=== PATIENT | male | born 1990 | race Caucasian/White ===

== ENCOUNTER 2021-10-03 09:37 | Emergency (ER) | payer OTHER, SELFPAY ==
--- NOTE | ~2021-10-03 | XR_ITS ---
XR wrist LT min 3V 10/03/2021 10:09 INDICATION: Left wrist pain PROCEDURE: 4 views left wrist COMPARISON: No prior studies for comparison. FINDINGS: Fracture, dislocation or subluxation is not identified. The soft tissues appear within norm al limits. No foreign bodies are identified. IMPRESSION: 1: NO ACUTE BONE OR JOINT ABNORMALITY IDENTIFIED. Reviewed, dictated and finalized at location A.
--- NOTE | 2021-10-03 09:46 | ED.UPPEXIN ---
HPI - Extremity Injury (Upper) General Chief Complaint: Extremity Injury, Upper Stated Complaint: left thumb injury Time Seen by Provider: 10/03/21 09:47 Source: patient, family and RN notes reviewed History of Present Illness HPI narrative: Patient is a 31-year-old male who presents the urgent care with his mother with complaints of left thumb/wrist pain. Patient states that he is unsure how he hurt it. 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 Patient has not done anything [id number] for his pain. No other acute complaints or injuries noted. Mother and patient aware of the plan of care. Some parts of this dictation were generated by voice recognition software and may contain typographical and/or grammatical inaccuracies. Related Data Home Medications Medication Instructions Recorded Confirmed escitalopram oxalate 10 mg tablet 10 mg PO DAILY 10/03/21 10/03/21 Allergies Allergy/AdvReac Type Severity Reaction Status Date / Time No Known Allergies Allergy Verified 10/03/21 09:58 Review of Systems Review of Systems: CONSTITUTIONAL: Denies fever, chills, or sweats. EYES: Denies visual changes, redness, or discharge. ENT: Denies rhinorrhea, congestion, sore throat, or otalgia. CARDIOVASCULAR: Denies chest pain, palpitations, or edema. RESPIRATORY: Denies cough or dyspnea. GASTROINTESTINAL: Denies abdominal pain, nausea, vomiting, or diarrhea. GENITOURINARY: Denies dysuria or hematuria. SKIN: Denies rash or itching. MUSCULOSKELETAL: Reports of left thumb/wrist pain NEUROLOGIC: Denies headache, numbness, or weakness. All other systems reviewed are negative, except as documented in HPI. PMFSH Comments At the time of my signature, I reviewed and agree with the nursing past medical, surgical, social, and family history. There is no relevant family history pertinent to the patient complaint. Exam Narrative: GENERAL: This is a well-nourished, well-developed patient, in no apparent distress. HEAD: normocephalic, atraumatic. EYES: PERRL. Sclera clear/white. Vision is grossly intact. EARS: External ears normal NOSE: External nose normal with no obvious nasal discharge, nares without redness, no rhinorrhea. THROAT: Mucous membranes moist NECK: Neck supple CARDIOVASCULAR: Regular rate and rhythm without murmurs, gallops, or rubs. RESPIRATORY: Clear to auscultation. Breath sounds equal bilaterally. No wheezes, rales, or rhonchi. SKIN: warm, intact with no suspicious lesions or rash, good texture and turgor. NEURO: awake, alert, and oriented to person, place and time. There were no obvious focal neurologic abnormalities. EXTREMITIES: No obvious deformity or fracture noted to the left upper extremity/thumb/wrist. Mild to moderate tenderness over the left thenar eminence and to the left distal radius. Positive strong left radial pulse with capillary refill less than 2 seconds. Range of motion to left upper extremity within normal limits with mild exacerbated pain on flexion Course Course Level of Care: Express Care Visit Vital Signs Vital signs: Vital Signs Temperature 98.6 F 10/03/21 09:48 Pulse Rate 60 10/03/21 09:48 Respiratory Rate 16 10/03/21 09:48 Blood Pressure 104/57 L 10/03/21 09:48 Pulse Oximetry 100 10/03/21 09:48 Oxygen Delivery Room Air 10/03/21 09:48 Temperature 98.6 F 10/03/21 09:48 Pulse Rate 60 10/03/21 09:48 Respiratory Rate 16 10/03/21 09:48 Blood Pressure 104/57 L 10/03/21 09:48 Pulse Oximetry 100 10/03/21 09:48 Oxygen Delivery Room Air 10/03/21 09:48 Reviewed MDM - Extremity Injury (Upper) MDM Narrative Medical decision making narrative: Reviewed x-ray results with patient mother. Aware that x-ray was negative for fracture or deformity. Advised the patient to wear an Noé wrap or a cock up splint for support effort. Use Tylenol/ibuprofen/ice as needed. Follow-up with your PCP within 2 to 5 days
[2021-10-03 09:48] VITALS: BP 104/57; PULSE 60; RESP 16; TEMP 37; O2SAT 100
== END 2021-10-03 10:36 | disposition home or self-care (01) ==
PROVIDERS: Emergency Provider Nurse Practitioner Family; PCP Internal Medicine
DX: M79.645 Pain in left finger(s) (principal); F41.9 Anxiety disorder, unspecified; F32.A Depression, unspecified
CPT/HCPCS: 73110; 99213; G0463

== ENCOUNTER 2024-06-17 14:18 | Emergency (ER) | payer OTHER, SELFPAY ==
--- NOTE | ~2024-06-17 | XR_ITS ---
EXAMINATION: XR foot RT min 3V DATE: 06/17/2024 14:45 INDICATION: Right foot injury and pain. TECHNIQUE: 4 views of right foot were obtained. COMPARISON: None. FINDINGS: There is flexion of the interphalangeal joints. There is valgus angulation at first interph alangeal joint. No fracture. There is mild osteoarthritis of first metatarsophalangeal joint. There i s internal fixation of tibia. IMPRESSION: 1. Mild osteoarthritis of first metatarsophalangeal joint. Reviewed, dictated and finalized at location A. [employer]
--- OUTSIDE RECORDS SUMMARY | 2024-06-17 14:21 | XMS_ITS | Clinical Summary ---
Author Organization [facility] Address [address] [place] [address] Phone Care Team Providers Care Dispatcher Automobile Rental Name Role Phone Lorena Rueda MD Primary Care Provider Allergies No known active allergies Medications naproxen (NAPROSYN) 500 MG Tablet Take 1 Tablet by mouth 2 times daily as needed for Moderate or more severe pain. 20 Tablet 2 Active HYDROcodone-ac etaminophen (NORCO) 5-325 MG TabletIndicati ons:Nondisplac ed fracture of greater trochanter of right femur, initial encounter for closed fracture (HCC) Take 1-2 Tablets by mouth every 4 hours as needed for Moderate or more severe pain for up to 13 doses. 23 Tablet 2 Active traMADol (ULTRAM) 50 MG TabletIndicati ons:Displaced fracture of greater trochanter of right femur, subsequent encounter for closed fracture with delayed healing Take 1 Tablet by mouth every 8 hours as needed for Moderate or more severe pain. 12 Tablet 2 Active rabies vaccine, PCEC (RABAVERT) Recon Suspension 1 mL by Intramuscular route See Admin Instructions. Give on day 3 (11/01/2023), day 7 (11/05/2023) and day 14 (11/12/2023). 1 mL 2 Active Active Problems Problem Noted Date Diagnosed Date Animal bite 11/12/2023 Immunizations Immunization Administration Dates Next Due RABIES - IM Fibroblast Cultu re Vaccine 11/12/2023,11/05/2023,11/01/2023,2023 RABIES IG IM/SQ 10/29/2023 TDAP Vaccine 10/29/2023 Social History Tobacco Use Types Packs/Day Years Used Date Smoking Tobacco: Never Smokeless Tobacco: Never Tobacco Cessation:Counseling Given: Not Answered Alcohol Use Standard Drinks/Week Comments Never 0 (1 standard drink = 0.6 oz pur e alcohol) Sex and Gender Information Value Date Recorded Sex Assigned at Not on file Legal Sex Male 7:43 PM CDT Gender Identity Not on file Sexual Orientation Not on file Last Filed Vital Signs Vital Sign Reading Time Taken Comments Blood Pressure 105/69 11/12/2023 3:13 PM CDT Pulse 100 11/12/2023 3:13 PM CDT Temperature 36.4 C (97.5 F) 11/12/2023 3:13 PM CDT Respiratory Rate 18 11/12/2023 3:13 PM CDT Oxygen Saturation 97% 11/12/2023 3:13 PM CDT Inhaled Oxygen Concentration - - Weight 68 kg (150 lb) 10/29/2023 1:02 PM CDT Height 182.9 cm (6') 10/29/2023 1:02 PM CDT Body Mass Index 20.34 10/29/2023 1:02 PM CDT Plan of Treatment Health Maintenance Due Date Last Done Comments Hepatitis C Virus (HCV) Screening 1991 Hepatitis B Immunization (3 of 3 - 3-dose series) 03/21/1997 01/03/1997, 11/29/1996 Influenza Immunization (#1) 2024 1107/2022, 02/28/2022, 04/11/2019, Additional history exists SARS-COV-2 Immunization ( season) 2024 05/17/2021, 04/03/2021 Td Immunization Every 10 Years (Adults With 1 Tdap) 10/28/2033 10/29/2023, 03/15/2018 Respiratory Syncytial Virus (RSV) Immunization (Adult) (1 - 1-dose 75+ series) 08/25/2066 DTaP/Tdap/Td Immunization Discontinued 2023, 03/15/2018, 11/29/1996, Additional history exists TdaP Immunization Discontinued 10/29/2023, 03/15/2018 Meningococcal Immunization (ACWY) Aged Out No longer eligible based on patient's age to complete this topic Pneumococcal Immunization Combined Aged Out No longer eligible based on patient's age to complete this topic Rotavirus Immunization Aged Out No lo nger eligible based on patient's age to complete this topic Insurance MEDICAID [employer] Care Teams Dispatcher Automobile Rental Relationship Specialty Start Date End Date Lorena Rueda MD [address] [place] [address] PCP - General Internal Medicine 03/13/21
--- OUTSIDE RECORDS SUMMARY | 2024-06-17 14:21 | XMS_ITS | Continuity of Care Document ---
Author Organization [facility] Address [address] [place] [address] Phone Care Team Providers Care Supervisor Doping Name Role Phone Marty Obregon MD Unavailable Unavailable Procedures Procedure Date X-ray exam of elbow, complete 8 Office/outpatient visit,[facility], mod 2007 X-ray exam of elbow, complete 8 X-ray exam of foot, complete Office/outpatient visit,[facility], mod 2007 Advance Directives Directive Yes / No Effective Date File Name No Information Encounters Encounter Description Practice Location Reason(s) For Visit Diagnoses Date Provider Providers Copied on Encounter [facility], [address] [place] [address], [id number], tel:[phone] [facility] No Information Dec-0 8-200 8 Sabas Ferguson. [address] [place], [place], [id number], . tel:[phone] [facility], [address] [place] [address], [id number], tel:[phone] [facility] No Information 3 0-200 8 Sabas Ferguson. [address] [place], [place], [id number], . tel:[phone] Office/outpat ient visit,est, mod [facility], [address] [place] [address], [id number], tel:[phone] [facility] No Information Oct-2 3-200 8 Sabas Ferguson. [address] [place], [place], [id number], . tel:[phone] [facility], [address] [place] [address], [id number], tel:[phone] [facility] [facility] Office No Information 8 Martínadam Alex. [address] [place], [address], . tel:[phone] Office/outpat ient visit,[facility], [facility], [address] [place] [address], [id number], tel:[phone] [facility] Office No Information 8 Jose Johnson. [address] [place], [address], . tel:[phone] Family History Family Member Type Diagnosis Age At Onset No Information Payers Payer name Insurance type Covered republican ID Authorlynna irvin(s) [facility] [id number] Social History Type Description Quantity Date Captured Comments Sex Male Smoking Status No Information Chief Complaint And Reason For Visit No Information Reason For Referral Reason For Referral No Information History Of Present Illness Encounter Date Complaint History Of Prese nt Illness No Information Functional Status Date Functional Assessmen t No Information Instructions Date Instruction Additional Infor mation No Information Assessments Type Assessment Date No Information Patient Care Teams Name Effective Dates (start - stop) Status Members No Information
--- OUTSIDE RECORDS SUMMARY | 2024-06-17 14:21 | XMS_ITS | Encounter Summary ---
Author Organization [facility] Address [address] [place] [address] Phone Care Team Providers Care Mixing And Dispensing Supervisor Name Role Phone Lorena Rueda MD Primary Care Provider [phone] Encounter Details Date Type Department Care Team (Late st Contact Info) Description 11/02/2023 [facility] [address] [place] [address] Adelita Cedillo MD [address] [place] [address] Social History Tobacco Use Types Packs/Day Years Used Date Smoking Tobacco: Never Smokeless Tobacco: Never Alcohol Use Standard Drinks/Week Comments Never 0 (1 standard drink = 0.6 oz pur e alcohol) Sex and Gender Information Value Date Recorded Sex Assigned at Not on file Legal Sex Male 7:43 PM CDT Gender Identity Not on file Sexual Orientation Not on file documented as of this encounter Plan of Treatment Not on file documented as of this encounter Visit Diagnoses Not on filedocumented in this encounter Care Teams Mixing And Dispensing Supervisor Relationship Specialty Start Date End Date Lorena Rueda MD [address] [place], [place] [id number] PCP - General Internal Medicine 03/13/21 documented as of this encounter
--- OUTSIDE RECORDS SUMMARY | 2024-06-17 14:22 | XMS_ITS | Continuity of Care Document ---
Author Organization [facility] Address [address] [place] [address] Phone Care Team Providers Care Slunk Skinner Name Role Phone Marty Obregon MD Unavailable Unavailable Procedures Procedure Date X-ray exam of elbow, complete 8 Office/outpatient visit,[facility], mod 2007 X-ray exam of elbow, complete 8 X-ray exam of foot, complete Office/outpatient visit,[facility], mod 2007 Advance Directives Directive Yes / No Effective Date File Name No Information Encounters Encounter Description Practice Location Reason(s) For Visit Diagnoses Date Provider Providers Copied on Encounter [facility], [address] [place] [address], [id number], tel:[phone] [facility] No Information Dec-0 8-200 8 Sabas Ferguson. [address] [place], [place], [id number], . tel:[phone] [facility], [address] [place] [address], [id number], tel:[phone] [facility] No Information 3 0-200 8 Sabas Ferguson. [address] [place], [place], [id number], . tel:[phone] Office/outpat ient visit,est, mod [facility], [address] [place] [address], [id number], tel:[phone] [facility] No Information Oct-2 3-200 8 Sabas Ferguson. [address] [place], [place], [id number], . tel:[phone] [facility], [address] [place] [address], [id number], tel:[phone] [facility] Office No Information 8 Martínadam Alex. [address] [place], [address], . tel:[phone] Office/outpat ient visit,[facility], [facility], [address] [place] [address], [id number], tel:[phone] [facility] No Information 8 Jose Johnson. [address] [place], [address], . tel:[phone] Family History Family Member Type Diagnosis Age At Onset No Information Payers Payer name Insurance type Covered green party ID Authorlynna irvin(s) [facility] [id number] Social History Type Description Quantity Date Captured [...]
--- OUTSIDE RECORDS SUMMARY | 2024-06-17 14:22 | XMS_ITS | Clinical Summary ---
Author Organization [facility] Address [address] [place] [address] Care Team Providers Care Supervisor Research Kennel Name Role Phone Lorena Rueda MD Primary Care Provider [phone] Source Comments [facility],non-owned Affiliates and Associated Physician Practices is amultiple site organization consisting of ambulatory clinics and hospital sitesin [place], [place], [place] and [place]. This disclosure is being madepursuant to the Care Everywhere program and may not contain all information available regarding this patient. Last updated 18.[facility] Social History Tobacco Use Types Packs/Day Years Used Date Smoking Tobacco: Never Assessed Sex and Gender Information Value Date Recorded Sex Assigned at Not on file Gender Identity Not on file Sexual Orientation Not on file Plan of Treatment Health Maintenance Due Date Last Done Comments HIV SCREENING 08/25/2006 HEPATITIS C SCREENING 08/21/2009 DTAP/TDAP/TD VACCINES (1 - Tdap) 08/25/2010 HEPATITIS B VACCINE (1 of 3 - 19+ 3-dose series) 08/25/2010 COVID-19 VACCINE ( - 2023-2 5 season) 2024 INFLUENZA VACCINE (#1) 2024 DEPRESSION SCREENING 05/04/2024 ZOSTER VACCINE (1 of 2) 08/25/2041 HIB VACCINE Aged Out No longer eligi ble based on patient's age to complete this topic HPV VACCINE Aged Out No longer eligi ble based on patient's age to complete this topic MENINGOCOCCAL (Group B) VACCINE Aged Out No longer eligible based on patient's age to complete this topic MENINGOCOCCAL VACCINE Aged Out No alyssa sumit eligible based on patient's age to complete this topic PNEUMOCOCCAL VACCINE Aged Out No long er eligible based on patient's age to complete this topic Care Teams Supervisor Research Kennel Relationship Specialty Start Date End Date Lorena Rueda MD [address] [place] [address] PCP - General 04/01/21
--- OUTSIDE RECORDS SUMMARY | 2024-06-17 14:22 | XMS_ITS | Continuity of Care Document ---
Author Organization [facility] Address [address] [place] [address] Phone Care Team Providers Care Heating Element Repairer Name Role Phone Theo Tarango MD Unavailable Unavailable Advance Directives Directive Yes / No Effective Date File Name No Information Encounters Encounter Description Practice Location Reason(s) For Visit Diagnoses Date Provider Providers Copied on Encounter [facility], [address], [place], [place], [id number], tel:[phone] Aranza Collins ATTN DEFIC NONHYPERACT Emelina Venegas. [address], [address], [place], [place], [id number]. tel:[phone] Family History Family Member Type Diagnosis Age At Onset No Information Payers Payer name Insurance type Covered alliance party ID Authoriza tion(s) No Information Social History Type Description Quantity Date Captured [...]
--- OUTSIDE RECORDS SUMMARY | 2024-06-17 14:22 | XMS_ITS | Referral Summary ---
Author Organization [facility] Address [address] [place] [address] Care Team Providers Care Parts Counter Representative Name Role Phone Lorena Rueda MD Primary Care Provider [phone] Source Comments [facility],non-owned Affiliates and Associated Physician Practices is amultiple site organization consisting of ambulatory clinics and hospital sitesin [place], [place], [place] and [place]. This disclosure is being madepursuant to the Care Everywhere program and may not contain all information available regarding this patient. Last updated 18.[facility] Social History Tobacco Use Types Packs/Day Years Used Date Smoking Tobacco: Never Assessed Sex and Gender Information Value Date Recorded Sex Assigned at Not on file Gender Identity Not on file Sexual Orientation Not on file Plan of Treatment Not on file Care Teams Parts Counter Representative Relationship Specialty Start Date End Date Lorena Rueda MD [address] [place] [address] PCP - General 04/01/21
--- OUTSIDE RECORDS SUMMARY | 2024-06-17 14:22 | XMS_ITS | Data Portability ---
Author Organization [facility] Address [address] [place] [address] Care Team Providers Care Magazine Filler Name Role Phone LORENA REAL Primary Care Provider Assessment No assessment recorded. Plan of Treatment Reminders Order Date Submit Date Provider Last Modified By Organization Details Last Modified Time Details Appointments None recorded . Lab CMP, serum or plasma 2022 023 [facility], [address] [facility], [place], [address], 4 10:25:33 lipid panel, serum 2022 023 [facility], [address] [facility], [facility], [place], [address], 3 11:27:44 CBC w/ auto diff 2022 023 MINAL [facility], [address] [place] [address], [facility] 2, [place], [address], 3 11:27:44 HbA1c (hemoglo bin A1c), blood 2022 023 MINAL [facility], [address] [facility], [facility] 2, [place], [address], 3 11:27:43 TSH, ultra-se nsitive, serum 2022 023 MINAL [facility], [address] [facility], [facility] 2, [place], [address], 11:27:43 Referral general surgeon referral 2022 023 [email or web address] Jerome Irvin MD, 4 [facility] , [address], [place], [address], 08:28:55 orthoped ic surgeon referral - Please call pt to schedule - Thank you 2021 [email or web address] Braeden Rivers, 4 [facility] , [address], [place], [address], 2 15:10:36 Procedures None recorded . Surgeries None recorded . Imaging None recorded . Medication Orders duloxeti ne 30 mg capsule, delayed release 2021 [facility] [place], [address], 11:07:22 gabapent in 100 mg capsule 2021 [facility] [place], [address], 11:07:24 escitalo pram 20 mg tablet 2021 [facility] [address] [place], [address], 11:58:09 Patient TargetsNo targets recorded. Patient Instructions Encounter Date Encounter Id Patient Instructions Last Modified By Organization Details Last Modified Time 10/29/2021 [id number] f/u in 1 month nsuthan Not available 10/29/2021 14:47:56 02/28/2022 [id number] f/u in 1 month nsuthan Not available 02/28/2022 12:06:50 08/01/2022 [id number] f/u in 4month nsuthan Not available 0 08/01/2022 14:35:05 03/06/2023 [id number] flu shot /labs / f/u yr nsuthan Not available 03/06/2023 11:29:37 11/09/2023 [id number] jefferyn maxx Not available 11/08 12:35:38 Reason for Referral Orthopedic Surgeon Referral for Closed fracture of greater trochanter of right femur Please call pt to schedule- Thank you Referring Physician: Cathy Real, Internal Medicine, Encounter Date: 02/28/2022 General Surgeon Referral for Sebaceous cyst of skin Referring Physician: Cathy Real, Internal Medicine, Encounter Date: 08/01/2022 Results Created Date Observation Date Name Description Value Unit Range Abnormal Flag Note LastModifiedBy Organization Detail LastModifiedTime 10/04/19 22 10/03/2021 XR, wrist No observ ation record ed. maxx [facility] [address], [place], [address], 10/04/2021 10:18:41 02/29/20 22 02/20/2022 XR, femur , 2 or more view No observ ation record ed. [facility] [address] [place], [address], 03/04/2022 10:16:08 02/29/[address], pelvi s, w/o contr ast No observ ation record ed. Francisco Wheat MD [address], [place], [address], 03/03/2022 16:03:51 03/03/20 22 XR, hip, unila teral , 2 or 3 view No observ ation record ed. Francisco Wheat MD [address], [place], [address], 03/03/2022 16:03:51 Result Notes None recorded. Problems Name Problem SNOMED Code Status Onset Date Resolution Date Notes Provider Name and Address Organization Details Recorded Time Musculosk eletal pain 925541518 Active 2019 Lorena Real MD Attn: Lefty g,[address] [place], [address], [facility] - [facility] 0 09:02:51 Alcohol abuse 04550089 Active 2021 Lorena Real MD Attn: Lefty morrison,[address] [facility], [place], [address], [place] - [facility] 2 15:08:47 Closed fracture of greater trochante r of right femur 358189955239 55012 Active 2022 Lorena Real MD Attn: Lefty morrison,[address] [place], [address], [place] [facility] 3 11:57:24 Traumatic brain injury 603373257 Active Lorena Real MD Attn: Lefty morrison,[address] [place], [place], [address] [place] [address] 2, [place] - [facility] 2 12:16:27 Mixed anxiety and depressiv e disorder 283308061 Active Lorena Real MD Attn: Lefty morrison,[address] [place], [place], [address] [place] [address] 2, [place] - [facility] 2 12:16:27 Knee pain Active Lorena Real MD Attn: Emelycandice morrison,[address] [facility], [place], [address], [place] [facility] 5 16:33:54 Vitamin D deficienc y 00958774 Active Lorena Real MD Attn: Emelycandice morrison,[address] [place], [place], [address] [place] [address] 2, [place] - [facility] 5 16:33:54 Urinary incontine nce 814975609 Active Lorena Real MD Attn: Emelycandice morrison,[address] [place], [address], [place] - [facility] 2 12:16:27 Elevated blood-pre ssure reading without diagnosis of hypertens ion 266334870 Completed 201607/10/2016 Lorena Real MD Attn: Emelycandice morrison,[address] [place], [address], [place] [facility] 12:01:50 Problem Notes None recorded. Procedures Surgical History Date Name Laterality Status Provider Name and Address Organization Details Recorded Time Tracheostomy cleaning brush completed [facility] 03/15/2018 14:13:53 open insertion of feeding tube into stomach completed [facility] 03/15/2018 14:14:23 release of tendon completed [facility] 03/15/2018 14:14:41 free skin graft completed [facility] 03/15/2018 14:15:18 Imaging Results Imaging Date Name Status [facility]Modified by [facility] Details LastModified Time 10/03/2021 XR, wrist completed maxx [address], [place], [address], 10/04/2021 10:18:41 02/20/2022 XR, femur, 2 or more view completed [facility] [address] [place], [address], 03/04/2022 10:16:08 02/28/2022 CT, pelvis, w/o contrast completed Francisco Wheat MD [address] , [place], [address], 03/03/2022 16:03:51 03/03/2022 XR, hip, unilateral, 2 or 3 view completed Francisco Wheat MD [address] [place], [address], 03/03/2022 16:03:51 Procedure Notes None recorded. Medical Equipment None Reported. Allergies No known drug allergies Medications Name Sig Start Date Stop Date Status Note LastModified by Organization Details LastModified Time cyclobenzap rine 10 mg tablet TAKE 1 TABLET BY MOUTH THREE TIMES DAILY NEEDED FOR PAIN FOR 14 DAYS 03/06 completed Not Available Not Available Not Available amoxicillin 500 mg capsule 03/15 completed Not Available Not Available Not Available oxybutynin chloride ER 10 mg tablet,exte nded release 24 hr Take 1 tablet every day by oral route. 03/15 completed Not Available Not Available Not Available ibuprofen 800 mg tablet 03/15 completed Not Available Not Available Not Available fluconazole 150 mg tablet active Not Available Not Available Not Available hydrocodone 5 mg-acetamin ophen 325 mg tablet TAKE 1 TO 2 TABLETS BY MOUTH EVERY 4 HOURS NEEDED FOR MODERATE OR MORE SEVERE PAIN. MAX 8 PER DAY 03/06 completed Not Available Not Available Not Available tramadol 50 mg tablet TAKE ONE TABLET BY MOUTH ONCE DAILY NEEDED 07/10 completed Not Available Not Available Not Available triamcinolo ne acetonide 0.1 % topical cream APPLY A THIN LAYER TO THE AFFECTED AREA(S) BY TOPICAL ROUTE TWICE DAILY 03/06 completed Not Available Not Available Not Available baclofen 20 mg tablet Take 1 tablet twice a day by oral route for 30 days. 10/29 completed Not Available Not Available Not Available nicotine 21 mg/24 hr daily transdermal patch active Not Available Not Available Not Available oxybutynin chloride ER 5 mg tablet,exte nded release 24 hr Take 2 tablets by mouth daily 03/15 completed Not Available Not Available Not Available gabapentin 100 mg capsule TAKE 1 CAPSULE BY MOUTH ONCE DAILY AT BEDTIME 03/06 completed Not Available Not Available Not Available ergocalcife rol (vitamin D2) 1,250 mcg (50,000 unit) capsule 03/15 completed Not Available Not Available Not Available oxybutynin chloride 5 mg tablet TAKE TWO TABLETS BY MOUTH TWICE DAILY 07/10 completed Not Available Not Available Not Available sertraline 50 mg tablet Take 1 tablet every day by oral route. 03/15 completed Not Available Not Available Not Available naproxen 500 mg tablet TAKE 1 TABLET BY MOUTH TWICE DAILY NEEDED FOR MODERATE OR MORE SEVERE PAIN 03/06 completed Not Available Not Available Not Available amoxicillin 875 mg-potassiu m clavulanate 125 mg tablet 11/08 completed Not Available Not Available Not Available escitalopra m 10 mg tablet TAKE 1 TABLET BY MOUTH ONCE DAILY 10/29 completed Not Available Not Available Not Available escitalopra m 20 mg tablet Take 1 tablet every day by oral route. 08/01 completed Not Available Not Available Not Available divalproex ER 250 mg tablet,exte nded release 24 hr active Not Available Not Available Not Available duloxetine 30 mg capsule,del ayed release Take 1 capsule every day by oral route. 03/06 completed Not Available Not Available Not Available oxybutynin chloride take one 5mg tablet twice daily 07/10 completed Not Available Not Available Not Available ID NOW COVID-19 Test Kit TEST DIRECTED 09/06 completed Not Available Not Available Not Available Vitals Date Recorded Body height Body mass index (BMI) Body weight Heart rate Respiratory rate Body temperature Oxygen saturation Oxygen saturation in Arterial blood by Pulse oximetry Systolic blood pressure Diastolic blood pressure Provider Name and Address Organization Details Last Updated DateTime 2 182.88 cm 18.7 kg/m2 69825.0 3 g 93 /min 14 /min 97.3 [degF] 96 % 96 % 126 mm[Hg] 72 mm[Hg] Janeth Yu MA [facility] 2 14:37:16 Date Recorded Body height Body mass index (BMI) Body weight Heart rate Respiratory rate Body temperature Oxygen saturation Oxygen saturation in Arterial blood by Pulse oximetry Systolic blood pressure Diastolic blood pressure Provider Name and Address Organization Details Last Updated DateTime 2 182.88 cm 19.5 kg/m2 93757.9 4 g 103 /min 14 /min 97.5 [degF] 97 % 97 % 110 mm[Hg] 76 mm[Hg] Janeth Yu MA [place] - [facility] 2 11:44:57 Date Recorded Body height Respiratory rate Body temperature Oxygen saturation Oxygen saturation in Arterial blood by Pulse oximetry Heart rate Body mass index (BMI) Body weight Systolic blood pressure Diastolic blood pressure Provider Name and Address Organization Details Last Updated DateTime 3 182.88 cm 14 /min 97.2 [degF] 97 % 97 % 79 /min 20.2 kg/m2 43403.3 4 g 121 mm[Hg] 80 mm[Hg] Anushka Damon MA [place] - [facility] 3 11:52:22 Date Recorded Body height Body mass index (BMI) Body weight Heart rate Respiratory rate Body temperature Oxygen saturation Oxygen saturation in Arterial blood by Pulse oximetry Systolic blood pressure Diastolic blood pressure Provider Name and Address Organization Details Last Updated DateTime 3 182.88 cm 19.8 kg/m2 01633.4 9 g 106 /min 16 /min 98 [degF] 98 % 98 % 130 mm[Hg] 96 mm[Hg] LOBO Navarrete [place] - [facility] 3 11:09:32 Date Recorded Body height Body mass index (BMI) Body weight Oxygen saturation Oxygen saturation in Arterial blood by Pulse oximetry Body temperature Heart rate Systolic blood pressure Diastolic blood pressure Provider Name and Address Organization Details Last Updated DateTime 4 182.88 cm 18.8 kg/m2 27877.1 8 g 97 % 97 % 97.8 [degF] 64 /min 118 mm[Hg] 66 mm[Hg] Cyndi Valente [place] - [facility] 4 10:38:59 Social History Question Answer Notes LastModified by Organizat ion Details LastModified Time Tobacco Smoking Status Former Smoker Quit- 2014 Janeth Gigi mcallister, [place] - [facility] 07/10/2016 11:25:20 What Is Your Level Of Alcohol Consumption? Occasional Information not available 10/29/2021 Are You Blind Or Do You Have Difficulty Seeing? No Information not available 03/05/2021 What Is Your Level Of Caffeine Consumption? Heavy Mountain Dew Sometimes & Tea Information not available 11/09/2023 How Much Tobacco Do You Chew? None Information not available 07/10/2016 In The 14 Days Before Symptom Onset, Have You Had Close Contact With A Laboratory-confi rmed COVID-19 While That Case Was Ill? No Information not available 01/19/2020 In The 14 Days Before Symptom Onset, Have You Had Close Contact With A Person Who Is Under Investigation For COVID-19 While That Person Was Ill? No Information not available 01/19/2020 Have You Been To An Area Known To Be High Risk For COVID-19? No [facility] Information not available 02/28/2022 Are You Currently Employed? No Information not available 03/05/2021 Are You Deaf Or Do You Have Serious Difficulty Hearing? No Information not available 03/05/2021 What Type Of Diet Are You Following? REGULAR Information not available 07/10/2016 Which Illicit Or Recreational Drugs Have You Used? Denies Information not available 07/10/2016 Do You Or Have You Ever Used E-cigarettes Or Vape? Current User Of Electronic Cigarettes 3 % Nicotine Information not available 01/19/2020 What Is The Highest Grade Or Level Of School You Have Completed Or The Highest Degree You Have Received? [id number] Information not available 03/05/2021 What Is Your Occupation? Disability Information not available 03/15/2018 Are There Any Guns Present In Your Home? No Information not available 01/19/2020 Marital Status Single Informatio n not available 07/10/2016 What Was The Date Of Your Most Recent Tobacco Screening? 11/09/2023 Information not available 11/09/2023 What Is Your Relationship Status? Single Information not available 03/05/2021 Do You Use Your Seat Belt Or Car Seat Routinely? Yes Information not available 03/05/2021 Seat Belts Used Routinely Yes Information not available 01/19/2020 Smoke Alarm In Home Yes Information not available 01/19/2020 Do You Have Smoke And Carbon Monoxide Detectors In Your Home? Yes Information not available 03/05/2021 At What Age Did You Start Smoking Tobacco? 15 Information not available 07/10/2016 Do You Or Have You Ever Used Smokeless Tobacco? Never Used Smokeless Tobacco Information not available 01/19/2020 How Much Tobacco Do You Smoke? No Information not available 01/19/2020 General Stress Level Low Information not available 07/10/2016 Do You Feel Stressed (tense, Restless, Nervous, Or Anxious, Or Unable To Sleep At Night)? [id number] Information not available 03/06/2023 Do You Use Any Illicit Or Recreational Drugs? Yes Marijuana Information not available 10/29/2021 Do You Use Sunscreen Routinely? No Information not available 01/19/2020 Has Tobacco Cessation Counseling Been Provided? Yes Information not available 10/29/2021 On What Date Was Tobacco Cessation Counseling Provided? 11/09/2023 Information not available 11/09/2023 Do You Or Have You Ever Used Any Other Forms Of Tobacco Or Nicotine? Yes Information not available 03/05/2021 How Many Years Have You Used E-cigarettes Or Vape? 8 03/06/23 Information not available 03/06/2023 Sex: Male Functional Status Question Answer Note LastModified by Organizat ion Details LastModified Time Are you able to care for yourself? Yes w/ assistance Information not available 03/05/2021 What is your exercise level? None weight lifting Information not available 02/28/2022 Mental Status None recorded. Family History Relationship Description Onset Age of this Age Resolved Age Notes LastModified by Organization Details LastModified Time Mother Depressive disorder Not available 2016 11:24:59 Mother Hypertensive disorder Not available 2016 11:25:06 Mother Family history of breast cancer December 01, 2022 double mastec nakitatammi webbyma Not available 11/09/2023 10:34:34 Paternal Grandmother Malignant tumor of cervix Not available 09/06 12:10:19 Medical History Condition Response Coronary Artery Disease N Other Y High Blood Pressure N Atrial Fibrillation N Kidney or Bladder Problems N Thyroid Problems N GI Problems N Depression N COPD N Blood Clots N Skin Problems N Anemia N Heart Attack ([place]) N Anxiety Disorder N Diabetes N Muscle, Joint, or Bone Problems N Seizures/Epilepsy N Acid Reflux (GERD) N Cancer N Stroke N Asthma N Allergies N High Cholesterol N Hepatitis N Liver Disease N Headaches Y Heart Failure N Osteoporosis N Immunizations Vaccine Type Date Status Note Provider Nam e and Address Organization Details Recorded Time COVID-19, mRNA, LNP-S, PF, 30 mcg/0.3 mL dose 1 completed ARIES Burger, [place] - [facility] 10/29/2021 14:29:34 COVID-19, mRNA, LNP-S, PF, 30 mcg/0.3 mL dose 2 completed ARIES Burger, [place] - [facility] 10/29/2021 14:30:08 Influenza, split virus, quadrivalent, preservative 8 completed Not Available [facility] 05/21/2019 02:39:48 Tdap 8 completed Not Available [facility] 05/21/2019 02:36:56 Influenza, split virus, quadrivalent, PF 9 completed Not Available [facility] 05/21/2019 02:38:48 Influenza, split virus, quadrivalent, preservative 2 completed Lorena Real MD Attn: Accounting[address] [facility], [place], [address], [facility] 02/28/2022 15:23:45 Influenza, split virus, quadrivalent, preservative 3 completed Lorena Real MD Attn: Accounting[address] [facility], [place], [address], [facility] 03/06/2023 15:41:25 tetanus toxoid, unspecified formulation 7 completed Janeth [facility] 07/10/2016 11:24:20 Past Encounters Encounter ID Performer Location Encounter Start Date Encounter Closed Date Diagnosis/Indication Diagnosis SNOMED-CT Code Diagnosis ICD10 Code Diagnosis Note [id number] Malgorzata Hodges (Adult Med) [address] [place] [address] 08/16/2014 15:19:51 08/16/2014 16:27:21 Traumatic brain injury 687281354 with muscle spasm of legs Mixed anxi ety and depressive disorder 812252212 Trial of Zoloft f/u in 1 month Knee pain 93623465 of L/ knee check xray Vitamin D deficiency 98595833 Urinary incontinence 861655081 [id number] MD Tracie Cuadra (Adult Med) [address] [place] [address] 07/10/2016 11:03:53 07/10/2016 14:16:41 Urinary incontinence 646524897 R32 Adult heal th examination 719544702 Z00.01 healthy diet and exercise discussed with pt/ his mom [id number] MD Tracie Cuadra (Adult Med) [address] [place] [address] 03/15/2018 14:04:04 03/15/2018 16:25:12 Administration of influenza vaccine 56340289 Z23 Adult heal th examination 821897439 Z00.01 healthy diet and exercise discussed with pt/ his mom Administra tion of diphtheria, pertussis, and tetanus vaccine 774513339 Z23 Musculoskeletal pain 279 373567 M79.10 with muscle spasm of legs [id number] Janeth Yu MA [facility] (Adult Med) [address] [place] [address] 04/11/2019 10:31:03 04/12/2019 08:39:08 Administration of influenza vaccine 24266785 Z23 [id number] [facility] [address] [place] [address] 01/19/2020 08:17:55 01/26/2020 01:33:26 Urinary incontinence 702337795 R32 Uses pad Musculoskeletal pain 279 502804 M79.10 with muscle spasm of legs and traumatic brain injury [id number] [facility] [address] [place] [address] 03/05/2021 09:23:57 03/06/2021 05:57:54 Adult health examination 998724572 Z00.00 healthy diet and exercise discussed with pt/ his mom Urinary incontinence 165 429666 R32 Uses pad [id number] [facility] [address] [place] [address] 09/06/2021 11:51:46 09/09/2021 07:05:15 Mixed anxiety and depressive disorder 840553164 F41.8 with anger issues- failed on meds in the past- pt to see psychiatri st / go to ER if SI/HIpt to start escitalopr am with hydroxyzin e hs Atopic dermatitis 377511 01 L20.9 on R/dorsal foot - avoid scratch [id number] [facility] [address] [place] [address] 10/29/2021 14:05:49 10/30/2021 08:32:38 Mixed anxiety and depressive disorder 804022190 F41.8 with anger issues- failed on meds in the past- pt to see psychiatri st / go to ER if SI/HIpt to increase escitalopr am 20mg daily with hydroxyzin e hs Musculoskeletal pain 279 209297 M79.10 with muscle spasm of legs and traumatic brain injury- pt to take gabapentin hs Alcohol abuse 24163713 F 10.10 - pt still continues to drink alcohol -counselle d [id number] MD Tracie Cuadra (Adult Med) [address] [place] [address] 02/28/2022 11:24:40 03/04/2022 10:00:32 Musculoskeletal pain 719698806 M79.10 with muscle spasm of legs and traumatic brain injury- pt to take gabapentin hs Traumatic brain injury 528473087 S06.300S with muscle spasm of legs Difficulty walking 30070 2003 R26.2 with recent fx of R/femur and R/side weakness due to traumatic brain injury- pt is not safe with cane or walker - he is at risk for fall with cane or walkerpt needs to have electric wheel chair to complete ADL Administra tion of influenza vaccine 34972705 Z23 Closed fra cture of greater trochanter of right femur 0600379817 4596608 S72.111D - pt to see ortho / CT showed minimally displaced trochanter ic fxconsider PT after ortho Mixed anxi ety and depressive disorder 359026159 F41.8 with anger issues- failed on meds in the past- pt to see psychiatri st / go to ER if SI/HIpt is on escitalopr am 20mg daily with hydroxyzin e hs-Add duloxetine 30mg daily - consider to change escitalopr am to duloxetine in future [id number] MD Tracie Cuadra (Adult Med) [address] [place] [address] 08/01/2022 11:26:43 08/01/2022 16:59:28 Mixed anxiety and depressive disorder 341895710 F41.8 with anger issues- failed on meds in the past- pt to see psychiatri st / go to ER if SI/HIpt is on escitalopr am 20mg daily with hydroxyzin e hs-Add duloxetine 30mg daily - consider to change escitalopr am to duloxetine in future Traumatic brain injury 805118442 S06.300S with muscle spasm of legs Closed fra cture of greater trochanter of right femur 6781179749 4991024 S72.111D - pt to see ortho / CT showed minimally displaced trochanter ic fxconsider PT after ortho Sebaceous cyst of skin 742914465 L72.3 on R/buttock- pt to see surgeon [id number] MD Tracie Cuadra (Adult Med) [address] [place] [address] 03/06/2023 10:25:02 03/09/2023 15:09:19 Traumatic brain injury 741918271 S06.300S with muscle spasm of legs Administra tion of influenza vaccine 40018371 Z23 Adult heal th examination 549624143 Z00.00 healthy diet and exercise discussed with pt/ his mom Elevated blood-pressure reading without diagnosis of hypertension 651934963 R03.0 -low salt diet /monitor bp [id number] MD Tracie Cuadra (Adult Med) [address] [place] [address] 11/09/2023 10:27:51 11/11/2023 16:29:58 Animal bite wound 899127234 W55.81XD - pt was rxed with augmantin- pt is receiving rabies vaccine- healing well-sutur es removed Health Concerns Section Related Observation LastModified by Organization Detai ls LastModified Time None Recorded Concern Status LastModified by Organization Details LastModified Time None Recorded Advance Directives Directive None Recorded Payers Encounter Date Sequence Insurance Name Policy Number Policy Torres Covered Member ID Torres Member ID Guarantor Name 10/29/2021 1 [facility] ON OR AFTER 11/01/20 (MEDICAID REPLACEMENT - HMO) Demetrio Hall [id number] Demetrio Hall 02/28/2022 1 [facility] ON OR AFTER 11/01/20 (MEDICAID REPLACEMENT - HMO) Demetrio Hall [id number] Demetrio Hall 08/01/2022 1 [facility] ON OR AFTER 11/01/20 (MEDICAID REPLACEMENT - HMO) Demetrio Hall [id number] Demetrio Hall 03/06/2023 1 [facility] ON OR AFTER 11/01/20 (MEDICAID REPLACEMENT - HMO) Demetrio Hall [id number] Demetrio Hall 11/09/2023 1 [facility] ON OR AFTER 11/01/20 (MEDICAID REPLACEMENT - HMO) Demetrio Hall [id number] Demetrio Hall Notes Date Note Type Note Provider Name and Address Organization Details Recorded Time 10/29/2021 text/html Anxiety/Depressi onRe ported byPatient/ mother.Quality:mood worse;increased anxiety Severity:denies suicidal ideations Duration:frequent; symptoms lasting over 2 weeks Onset/Timing:gradual Context:ETOH use; traumatic brain injury as a child. Modifying Factors:medications as directed; tried meds in the past without success. Associated Symptoms:denies homicidal ideations;high irritability;anxiety ;depression;insomnia Notes:mom did not see much difference iwth med pt with traumatic brain injury , here for f/u , pt also has aches and pain /back pain Lorena Real MD Attn: Accounting[address] [place], [address], [facility] 10/29/2021 15:10:09 02/28/2022 text/html Anxiety/Depressi onRe ported byPatient/ mother.Quality:mood worse;increased anxiety Severity:denies suicidal ideations Duration:frequent; symptoms lasting over 2 weeks Onset/Timing:gradual Context:ETOH use; traumatic brain injury as a child. Modifying Factors:medications as directed; tried meds in the past without success. Associated Symptoms:denies homicidal ideations;high irritability;anxiety ;depression;insomnia Notes:mom did not see much difference with med pt with traumatic brain injury , here for hospital f/u for L/hip fx a wk ago , went to ER after an accidental fall. pt is not seeing ortho . pt can't put weight due to pain on R/hip .Pt is in wheelchair , can't walk , requesting to have a scooter so that he can ambulate and carry out his daily activities . pt also has aches and pain /back pain Lorena Real MD Attn: Accounting[address] [place], [address], [facility] 02/28/2022 15:23:58 08/01/2022 text/html Anxiety/Depressi onRe ported byPatient/ mother.Quality:sympt oms improved (stable) Severity:denies suicidal ideations Duration:frequent; symptoms lasting over 2 weeks Onset/Timing:gradual Context:ETOH use; traumatic brain injury as a child. Modifying Factors:medications as directed (pt does not take med as directed) Associated Symptoms:denies homicidal ideations;anxiety(st able);depression(sta ble);insomniaNotes:m om did not see much difference with medGeneral Rash/Skin LesionReported bypatient.Location:R /buttock -upper Quality:localized;si ngle Severity:worsening Duration:has noted for >3 months Associated Symptoms:no fever pt with traumatic brain injury , here for hospital f/u for L/hip fx a wk ago , went to ER after an accidental fall. pt is not seeing ortho . pt can't put weight due to pain on R/hip .Pt is in wheelchair , can't walk , requesting to have a scooter so that he can ambulate and carry out his daily activities . pt also has aches and pain /back pain Lorena Real MD Attn: [address] [place], [address], [facility] 08/01/2022 14:35:33 03/06/2023 text/html pt with traumati c brain injury is here for check up / pt also has aches and pain /back pain, taking marijuana for chronic pain / pt denied any issue , wants flu shot Lorena Real MD Attn: Accounting[address] [place], [address], [facility] 03/06/2023 15:46:02 11/09/2023 text/html Hand/FingersRepo rted bypatient.Hand Dominance:right Location:left (ring finger) Quality:improving Timing:acute (groundhog bite) Context:pt went to ER and receiving rabies /also got tdap pt is here for hospital f/u for animal (groundhog) bite Lorena Real MD Attn: Accounting[address] [place], [address], [facility] 11/09/2023 12:35:55
--- OUTSIDE RECORDS SUMMARY | 2024-06-17 14:22 | XMS_ITS | Patient Health Summary ---
Author Organization [facility] Address [address] [place] [address] Care Team Providers Care Can Filler Name Role Phone Lorena Rueda MD Primary Care Provider [phone] Note from [facility],non-owned Affiliates and Associated Physician Practices is amultiple site organization consisting of ambulatory clinics and hospital sitesin [place], [place], [place] and [place]. This disclosure is being madepursuant to the Care Everywhere program and may not contain all information available regarding this patient. Last updated 18.[facility] Social History Tobacco Use Types Packs/Day Years Used Date Smoking Tobacco: Never Assessed Sex and Gender Information Value Date Recorded Sex Assigned at Not on file Gender Identity Not on file Sexual Orientation Not on file Procedures * XR KNEE RIGHT 4VW OR MORE(Performed 01/30/2017) * XR KNEE LEFT 4VW OR MORE(Performed 01/30/2017) Results * XR KNEE RIGHT 4VW OR MORE (01/30/2017 3:13 PM CDT) Anatomical Region Laterality Modality Lower Extremity Other Impressions 01/30/2017 3:51 PM CDT IMPRESSION: No acute fracture or dislocation identified. Postsurgical changes on both sides. Dictated by Peewee Duran MD (residential driver). I, Dr. ENRRIQUE SMILEY MD have personally reviewed and interpreted this examination/study. This report was electronically signed by ENRRIQUE SMILEY MD on 01/30/2017 3:51 PM . Narrative 01/30/2017 3:51 PM CDT EXAMINATION: 1. XR KNEE RIGHT 4+ VW 2. XR KNEE LEFT 4+ VW HISTORY: Bilateral knee pain COMPARISON: No prior study is available for comparison. FINDINGS: Right knee: An intramedullary tibial nail and proximal multiple screws are partially imaged. No acute fracture or dislocation is identified. A bone spur is seen arising laterally from the proximal tibia, perhaps postsurgical. An irregular piece of heterotopic ossification measuring 3.1 x 1.2 cm seen within Hoffa's fat, likely secondary to the intramedullary nail placement. The knee joint space is preserved. No joint effusion is seen. Left knee: A single screw is identified in the medial femoral condyle. There is slight articular surface irregularity of the medial femoral condyle, perhaps from old trauma The osseous structures are intact and well aligned without acute fracture or dislocation. There is a spur at the lateral aspect of lateral femoral condyle. The knee joint space is preserved. No joint effusion is seen. Bone density and texture are normal. Procedure Note Enrrique Smiley MD - 07/31/2017 EXAMINATION: 1. XR KNEE RIGHT 4+ VW 2. XR KNEE LEFT 4+ VW HISTORY: Bilateral knee pain COMPARISON: No prior study is available for comparison. FINDINGS: Right knee: An intramedullary tibial nail and proximal multiple screws are partiallyimaged. No acute fracture or dislocation is identified. A bone spur isseen arising laterally from the proximal tibia, perhaps postsurgical. Anirregular piece of heterotopic ossification measuring 3.1 x 1.2 cm seen within Hoffa's fat, likelysecondary to the intramedullary nail placement. The knee joint space ispreserved. No joint effusion is seen. Left knee: A single screw is identified in the medial femoral condyle. There isslight articular surface irregularity of the medial femoral condyle,perhaps from old trauma The osseous structures are intact and well alignedwithout acute fracture or dislocation. There is a spur at the lateral aspect of lateral femoral condyle. The kneejoint space is preserved. No joint effusion is seen. Bone density andtexture are normal. IMPRESSION IMPRESSION: No acute fracture or dislocation identified. Postsurgical changes on both sides. Dictated by Peewee Duran MD (residential driver). I, Dr. ENRRIQUE SMILEY MD have personally reviewed and interpreted thisexamination/study. This report was electronically signed by ENRRIQUE SMILEY MD on 01/30/20173:51 PM . [facility] * XR KNEE LEFT 4VW OR MORE (01/30/2017 3:13 PM CDT) Anatomical Region Laterality Modality Lower Extremity Other Impressions 01/30/2017 3:51 PM CDT IMPRESSION: No acute fracture or dislocation identified. Postsurgical changes on both sides. Dictated by Peewee Duran MD (residential driver). I, Dr. ENRRIQUE SMILEY MD have personally reviewed and interpreted this examination/study. This report was electronically signed by ENRRIQUE SMILEY MD on 01/30/2017 3:51 PM . Narrative 01/30/2017 3:51 PM CDT EXAMINATION: 1. XR KNEE RIGHT 4+ VW 2. XR KNEE LEFT 4+ VW HISTORY: Bilateral knee pain COMPARISON: No prior study is available for comparison. FINDINGS: Right knee: An intramedullary tibial nail and proximal multiple screws are partially imaged. No acute fracture or dislocation is identified. A bone spur is seen arising laterally from the proximal tibia, perhaps postsurgical. An irregular piece of heterotopic ossification measuring 3.1 x 1.2 cm seen within Hoffa's fat, likely secondary to the intramedullary nail placement. The knee joint space is preserved. No joint effusion is seen. Left knee: A single screw is identified in the medial femoral condyle. There is slight articular surface irregularity of the medial femoral condyle, perhaps from old trauma The osseous structures are intact and well aligned without acute fracture or dislocation. There is a spur at the lateral aspect of lateral femoral condyle. The knee joint space is preserved. No joint effusion is seen. Bone density and texture are normal. Procedure Note Enrrique Smiley MD - 07/31/2017 EXAMINATION: 1. XR KNEE RIGHT 4+ VW 2. XR KNEE LEFT 4+ VW HISTORY: Bilateral knee pain COMPARISON: No prior study is available for comparison. FINDINGS: Right knee: An intramedullary tibial nail and proximal multiple screws are partiallyimaged. No acute fracture or dislocation is identified. A bone spur isseen arising laterally from the proximal tibia, perhaps postsurgical. Anirregular piece of heterotopic ossification measuring 3.1 x 1.2 cm seen within Hoffa's fat, likelysecondary to the intramedullary nail placement. The knee joint space ispreserved. No joint effusion is seen. Left knee: A single screw is identified in the medial femoral condyle. There isslight articular surface irregularity of the medial femoral condyle,perhaps from old trauma The osseous structures are intact and well alignedwithout acute fracture or dislocation. There is a spur at the lateral aspect of lateral femoral condyle. The kneejoint space is preserved. No joint effusion is seen. Bone density andtexture are normal. IMPRESSION IMPRESSION: No acute fracture or dislocation identified. Postsurgical changes on both sides. Dictated by Peewee Druan MD (residential driver). I, Dr. ENRRIQUE SMILEY MD have personally reviewed and interpreted thisexamination/study. This report was electronically signed by ENRRIQUE SMILEY MD on 01/30/20173:51 PM . [facility] [place] Care Teams Can Filler Relationship Specialty Start Date End Date Lorena Rueda MD [address] [place] [address] PCP - General 04/01/21
--- OUTSIDE RECORDS SUMMARY | 2024-06-17 14:22 | XMS_ITS | Continuity of Care Document ---
Author Organization [facility] Address [address] [place] [address] Phone Care Team Providers Care Frame Runner Name Role Phone Theo Tarango MD Unavailable Unavailable Advance Directives Directive Yes / No Effective Date File Name No Information Encounters Encounter Description Practice Location Reason(s) For Visit Diagnoses Date Provider Providers Copied on Encounter [facility], [address], [place], [place], [id number], tel:[phone] Aranza Collins ATTN DEFIC NONHYPERACT Emelina Venegas. [address], [address], [place], [place], [id number]. tel:[phone] Family History Family Member Type Diagnosis Age At Onset No Information Payers Payer name Insurance type Covered republican ID Authoriza tion(s) No Information Social History [...]
--- NOTE | 2024-06-17 14:54 | ED_ITS ---
HPI - Extremity Injury (Lower) General Chief Complaint: Extremity Injury, Lower Stated Complaint: Right foot pain Source: patient Mode of arrival: ambulatory Limitations: no limitations History of Present Illness HPI Narrative: 33 y/o male with hx TBI presented with mother for c/o right foot pain x3 days. Mother says he has short term memory loss and therefore does not recall any injury. Endorses redness to the top of the foot. Does not want to take any medicine for pain. Has been able to walk, but reports pain. Denies numbness tingling or weakness. Related Data Home Medications ?Medication ?Instructions ?Recorded ?Confirmed ?Last Taken ?Type escitalopram oxalate 10 mg tablet 10 mg PO DAILY 10/03/21 10/03/21 Unknown History Allergies Allergy/AdvReac Type Severity Reaction Status Date / Time No Known Allergies Allergy Verified 06/17/24 14:48 Review of Systems 2 Review of Systems: CONSTITUTIONAL: Denies body aches, fever, chills CARDIOVASCULAR: Denies chest pain, palpitations, or edema. RESPIRATORY: Denies cough or dyspnea. GASTROINTESTINAL: Denies abdominal pain, nausea, vomiting, or diarrhea. SKIN: Denies rash, itching, or wounds. MUSCULOSKELETAL: reports right foot pain NEUROLOGIC: Denies headache, numbness, tingling, or weakness. All systems reviewed & are unremarkable except as noted in HPI and below PMFSH Comments At time of signature, I have reviewed and agree with nursing past medical, surgical, social and family history unless otherwise noted. Please see nursing chart for further information. There is no relevant family history pertinent to the presenting complaint Exam 2 Narrative: GENERAL: Well-appearing CHEST: Speaks in full sentences. No respiratory distress. HEART: Regular rate and rhythm. Normal and equal peripheral pulses. EXTREMITIES: right foot has normal strength and sensation, tender with palpation distal 5th metatarsal area. Erythema noted to mid foot from 2nd metatarsal extending laterally with mild swelling. normal range of motion of foot but endorses pain with movement, worse pain when movement of the 5th toe. Small area of dark erythema to plantar surface at the 5th MTP area. No apparent open wounds, or obvious deformity; alignment normal, pulse palpable and equal bilaterally, skin warm, dry, pink. Capillary refill less than 3 seconds. SKIN: Warm, dry, Scattered scabbed areas to lower legs. NEURO: Alert and oriented x3. PSYCH: Normal mood and affect Extrem: Ankle/foot/toe images: 1. area of erythema and tenderness Course Course Emergency Course: Patient is aware of diagnosis, understands and agrees to treatment plan. Anticipatory guidance given. Patient agrees to follow-up as directed and is aware of reasons to seek care at the emergency department. Portions of this record may have been created with voice recognition software Level of Care: Express Care Visit Vital Signs Vital signs: Reviewed MDM - Extremity Injury (Lower) MDM Narrative Medical decision making narrative: Discussed physical exam findings and x-ray. ASAEL wrap applied. Will provide abx to cover cellulitis, as the xray is negative. Advised supportive measures and signs/symptoms to go to the ER. Pt is appropriate for outpt treatment and f/u. Differential Diagnosis Differential diagnosis: Likely ankle sprain and strain, puncture wound of foot and other (Plantar fasciitis, heel spur, foot strain/sprain, metatarsal fracture, metatarsalgia, thompson's neuroma) Imaging Data Radiologist's impression: Patient: Demetrio Hall : 1990 MR#: [id number] Age: 33 Acct:[id number] Loc: [facility] ADM Date: 06/17/24Attending Dr: Ordering Physician: Varsha Mckeon APRN Date of Service: 06/17/24 Procedure(s): XR foot RT min 3V Accession Number(s): [id number] cc: Varsha Mckeon APRN; Mohit, Lorena TEJADA~ EXAMINATION: XR foot RT min 3V DATE: 06/17/2024 14:45 INDICATION: Right foot injury and pain. TECHNIQUE: 4 views of right foot were obtained. COMPARISON: None. FINDINGS: There is flexion of the interphalangeal joints. There is valgus angulation at first interphalangeal joint. No fracture. There is mild osteoarthritis of first metatarsophalangeal joint. There is internal fixation of tibia. IMPRESSION: 1. Mild osteoarthritis of first metatarsophalangeal joint. Discharge Plan Discharge Clinical Impression: Acute pain of right foot Patient Disposition: Home, Self-Care Condition: Stable Instructions: Antibiotic Form, Cellulitis (ED), Foot Sprain (ED) Additional Instructions: Rest and elevate the Right leg; bear weight as tolerated Apply ice 15-20 minute intervals several times a day Keep it wrapped with ASAEL or use a soft ankle splint Motrin every 8 hours, alternate with Tylenol 1000mg every 8 hours as needed Follow up with your primary care provider as needed go to the ER for worsening symptoms or concerns Patient Language: Estonian Prescriptions: New cephalexin 500 mg capsule 500 mg PO Q8H 5 Days Qty: 15 0RF No Action escitalopram oxalate 10 mg tablet 10 mg PO DAILY Follow-up/Referrals: Mohit,MD Lorena [Primary Care Provider] -
== END 2024-06-17 15:06 | disposition home or self-care (01) ==
PROVIDERS: Emergency Provider Nurse Practitioner Family; PCP Internal Medicine
DX: M79.671 Pain in right foot (principal)
CPT/HCPCS: 73630; 99213; G0463